=== PATIENT | female | born 1955 | race Caucasian/White ===

== ENCOUNTER 2016-11-04 14:03 | Emergency (ER) | payer SELFPAY ==
[2016-11-04 14:50] VITALS: BP 121/78
--- NOTE | 2016-11-04 15:55 | UC ---
Laceration HPI - HPI Summary HPI Summary: The patient comes in today for: 1. Laceration dorsum of the left index finger. Onset: 2 hours ago. Palliative/provocative: Pressure on the wound helped with hemostasis. Quality: Sore Region: Dorsum of the left index finger. Severity: 0/10 Time: Constant. Associated symptoms: She states that initially, it was bleeding a lot in the beginning. Last tetanus vaccine: 4 years ago. Event: Her affected finger was cut by a schythe at work. * - History Of Current Complaint Chief Complaint: UCLaceration Stated Complaint: FINGER LACERATION Time Seen by Provider: 11/04/16 15:48 Hx Obtained From: Patient - Allergies/Home Medications Allergies/Adverse Reactions: Allergies Allergy/AdvReac Type Severity Reaction Status Date / Time No Known Allergies Allergy Verified 11/04/16 14:45 PMH/Surg Hx/FS Hx/Imm Hx Previously Healthy: No Endocrine History Of: Denies: Diabetes, Thyroid Disease, Hyperthyroidism, Hypothyroidism, Dyslipidemia Cardiovascular History Of: Denies: Cardiac Disorders, Hypertension, Pacemaker/ICD, Myocardial Infarction , Congestive Heart Failure, Atrial Fibrillation, Deep Vein Thrombosis, Bleeding Disorders Respiratory History Of: Denies: COPD, Asthma, Bronchitis, Pneumonia, Pulmonary Embolism GI/ History Of: Denies: Gastroesophageal Reflux, Ulcer, Gastrointestinal Bleed, Gall Bladder Disease, Kidney Stones, Diverticulitis, Renal Disease, Urosepsis Neurological History Of: Reports: Seizures - SEES DR ODEN, 3 SEIZURES 12 YEARS AGO Denies: TIA, CVA, Dementia, Migraine Psychological History Of: Denies: Anxiety, Depression, Bipolar Disorder, Schizophrenia, Post Traumatic Stress Disorder Cancer History Of: Denies: Lung Cancer, Colorectal Cancer, Breast Cancer, Prostate Cancer, Cervical Cancer Other History Of: Negative For: HIV, Hepatitis B, Hepatitis C, Anticoagulant Therapy - Surgical History Surgical History: Yes Surgery Procedure, Year, and Place: TRIGGER FINGER RELEASE BILATERAL MIDDLE FINGERS : DOUBLE BUNIONECTOMY 1979 : RT [facility]OW SURGERY 1994 : left knee meniscus tear 12/08/15 - Family History Known Family History: Positive: Cardiac Disease - Father had CHF in his 80's. Negative: Diabetes Family History: no family history of cardiac, respiratory and bleeding disorders - Social History Occupation: Employed Full-time Alcohol Use: None Substance Use Type: None Smoking Status (MU): Never Smoked Tobacco Have You Smoked in the Last Year: No - Immunization History Most Recent Tetanus Shot: unknown, thinks less than 9 years ago Review of Systems Constitutional: Negative Skin: Negative Eyes: Negative ENT: Negative Respiratory: Negative Cardiovascular: Negative Gastrointestinal: Negative Genitourinary: Negative Motor: Negative All Other Systems Reviewed And Are Negative: Yes Physical Exam Triage Information Reviewed: Yes Appearance: Well-Appearing, No Pain Distress, Well-Nourished Vital Signs: Initial Vital Signs Temp 97.6 F 11/04/16 14:46 Pulse 69 11/04/16 14:46 Resp 16 11/04/16 14:46 BP 121/78 11/04/16 14:46 Pulse Ox 98 11/04/16 14:46 Vital Signs Reviewed: Yes Eyes: Positive: Conjunctiva Clear. Negative: Discharge ENT: Positive: Hearing grossly normal. Negative: Pharyngeal erythema, Nasal congestion, Nasal drainage, TM bulging, TM dull, TM red, Tonsillar swelling, Tonsillar exudate Dental: Negative: Gross Decay/Caries @, Dental Fracture @ Neck: Positive: Supple, Nontender, No Lymphadenopathy. Negative: Nuchal Rigidity Respiratory: Positive: Chest non-tender, Lungs clear, No respiratory distress, No accessory muscle use. Negative: Crackles, Wheezing Cardiovascular: Positive: RRR, No Murmur Abdomen Description: Positive: Nontender, No Organomegaly, Soft. Negative: Distended, Guarding Musculoskeletal: Positive: Strength Intact, ROM Intact Neurological: Positive: Alert, Muscle Tone Normal. Negative: Lethargic Psychological: Positive: Age Appropriate Behavior, Consolable Skin: Positive: Other - The patient has a 1 cm superficial scrape along the dorsum of the left index finger. Laceration Repair - Laceration Repair 1 Description: Linear Laceration Size After Repair: Length (cm) - 1, Width (mm) - 1, Depth (mm) - 1 Irrigation With Pressure Irrigation Device: Yes Closure Material: Skin Adhesive Suture Of: Skin Laceration Course/Dx - Differential Dx - Laceration/Wound Provider Diagnoses: Laceration of the dorsum of the left index finger. Discharge - Discharge Plan Condition: Stable Disposition: HOME Patient Education Materials: Laceration (ED), Skin Adhesive Care (ED) Referrals: Freddy Pulido MD [Primary Care Provider] - If Needed
== END 2016-11-04 16:27 | disposition home or self-care (01) ==
LOC: UCEAST 14:03
DX: S61.211A Laceration without foreign body of left index finger without damage to nail, initial encounter (principal); X58.XXXA Exposure to other specified factors, initial encounter; Y93.9 Activity, unspecified; Y92.9 Unspecified place or not applicable
CPT/HCPCS: 12001; 99211; G0463

== ENCOUNTER 2018-06-12 10:45 | Emergency (ER) | payer OTHER ==
--- NOTE | 2018-06-12 10:51 | UC ---
Neck Pain HPI - HPI Summary HPI Summary: 3 wk hx of R clavicular pain at neck after lifting hay bails. Worsening pain yesterday and today as pt did not rest and continued to use her UE. 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 She does report heavy lifting . - History of Current Complaint Stated Complaint: COLLAR BONE COMPLAINT Time Seen by Provider: 06/12/18 10:49 Hx Obtained From: Patient Mechanism Of Injury: No Known Trauma Severity: Mild - Allergies/Home Medications Allergies/Adverse Reactions: Allergies Allergy/AdvReac Type Severity Reaction Status Date / Time No Known Allergies Allergy Verified 06/12/18 10:55 PMH/Surg Hx/FS Hx/Imm Hx Previously Healthy: Yes Neurological History: Seizures Other History Of: Negative For: HIV, Hepatitis B, Hepatitis C, Anticoagulant Therapy - Surgical History Surgical History: Yes Surgery Procedure, Year, and Place: TRIGGER FINGER RELEASE BILATERAL MIDDLE FINGERS : DOUBLE BUNIONECTOMY 1979 : RT [facility]BOW SURGERY 1994 : left knee meniscus tear 12/08/15 - Family History Known Family History: Positive: None, Cardiac Disease - Father had CHF in his 80 's. Negative: Diabetes Family History: no family history of cardiac, respiratory and bleeding disorders - Social History Alcohol Use: None Substance Use Type: None Smoking Status (MU): Never Smoked Tobacco Have You Smoked in the Last Year: No - Immunization History Most Recent Tetanus Shot: unknown, thinks less than 9 years ago Review Of Systems Constitutional: Positive: Negative Skin: Positive: Negative Musculoskeletal: Positive: Other: - lower front neck pain. Negative: Arthralgia , Myalgia All Other Systems Reviewed And Are Negative: Yes Physical Exam Triage Information Reviewed: Yes Appearance: Well-Appearing Vital Signs Reviewed: Yes Musculoskeletal Exam: Other - R ahouls normal, good rom. Musculoskeletal: Positive: ROM Intact - R SHOULDER AND NECK., Edema @ - minimal at AC joint/R side. little to no tenderness along clavicle to glenohumeral joint. Neurological: Positive: Alert, Muscle Tone Normal Neck Pain Course/Dx - Course Course Of Treatment: R Sternocleido AC joint pain after an overuse injury. No fx on xray today but have asked her to rest her UE for the next 3 days along w/ anti-inflammatory meds. On exam there was some mild swelling at the AC joint but no obvious tenderness along the clavicle. Good ROM on R UE - Differential Dx/Diagnosis Differential Dx/HQI/PQRI: Arthritis, Dislocation, Sprain, Strain, Trauma Provider Diagnosis: AC joint pain Discharge - Sign-Out/Discharge Documenting (check all that apply): Patient Departure All imaging exams completed and their final reports reviewed: Yes - Discharge Plan Condition: Good Disposition: HOME Referrals: Freddy Pulido MD [Primary Care Provider] - Additional Instructions: Please take ibuprofen for the pain for the next 3 days. If worsening please follow up with your pcp. - Billing Disposition and Condition Condition: GOOD Disposition: Home
[2018-06-12 10:55] VITALS: BP 133/79
== END 2018-06-12 11:57 | disposition home or self-care (01) ==
LOC: UCEAST 10:45
DX: M25.511 Pain in right shoulder (principal); Z86.69 Personal history of other diseases of the nervous system and sense organs
CPT/HCPCS: 99211; G0463